=== PATIENT | female | born 1975 | race Caucasian/White ===

== ENCOUNTER → 2020-06-09 08:55 | Outpatient (BNVA) | payer OTHER, SELFPAY | PROVIDERS: PCP Internal Medicine; Referring Provider Internal Medicine; Visit Provider Student in an Organized Health Care Education/Training Program | DX: M70.62 Trochanteric bursitis, left hip (principal) | CPT/HCPCS: 99212 ==

== ENCOUNTER 2020-06-09 09:51 | Outpatient (REF) | payer OTHER, SELFPAY | END 2020-06-09 09:52 | disposition home or self-care (01) | LOC: HO.XRAY 09:51 | PROVIDERS: PCP Internal Medicine; Visit Provider Student in an Organized Health Care Education/Training Program | DX: M70.62 Trochanteric bursitis, left hip (principal) | CPT/HCPCS: 73502 ==

== ENCOUNTER → 2020-06-16 08:10 | Outpatient (BNVA) | payer OTHER, SELFPAY | PROVIDERS: PCP Internal Medicine; Visit Provider Advanced Practice Midwife | DX: Z30.41 Encounter for surveillance of contraceptive pills (principal) | CPT/HCPCS: 99212 ==

== ENCOUNTER 2020-06-25 09:35 | Outpatient (REF) | payer OTHER, SELFPAY ==
--- NOTE | 2020-06-25 09:38 | MM_ITS ---
EXAMINATION: MM SCREENING DIGITAL BREAST TOMOSYNTHESIS, BILATERAL CLINICAL INFORMATION: Screening. Asymptomatic. The lifetime risk of breast cancer based on the Tyrer-Cuzick Model is 8%. COMPARISON: Mammography: 03/17/2019, 03/04/2018, 02/05/2017 TECHNIQUE: Digital breast tomosynthesis is performed in both the craniocaudal and mediolateral oblique views along with computer-aided detection (CAD). Synthesized 2D images are generated from the tomosynthesis. FINDINGS: The breasts are heterogeneously dense, which may obscure small masses (ACR BI-RADS breast composition Category c). There are no significant masses, abnormal calcifications, or other abnormalities. No significant changes from prior studies. MM/MM tomosynthesis screening BI IMPRESSION: No mammographic evidence of malignancy. ASSESSMENT: BI-RADS 1: Negative RECOMMENDATION: Routine annual mammography screening. This patient's information was entered into a reminder system with a target due date for their next mammogram.
== END 2020-06-25 09:36 | disposition home or self-care (01) ==
LOC: HO.MAMMO 09:35
PROVIDERS: PCP Internal Medicine; Visit Provider Internal Medicine
DX: Z12.31 Encounter for screening mammogram for malignant neoplasm of breast (principal)
CPT/HCPCS: 77063; 77067

== ENCOUNTER 2020-08-13 10:17 | Outpatient (REF) | payer OTHER, SELFPAY | END 2020-08-13 10:18 | disposition home or self-care (01) | LOC: HO.LAB 10:17 | PROVIDERS: PCP Internal Medicine; Visit Provider Internal Medicine | DX: Z20.822 Contact with and (suspected) exposure to COVID-19 (principal) | CPT/HCPCS: 36415; C9803; U0003 ==

== ENCOUNTER 2020-09-15 11:18 | Outpatient (REF) | payer OTHER, SELFPAY ==
[2020-09-16 08:23] LABS: BV Int Neg Control Negative (Negative); BV Int Pos Control Positive (Positive)
== END 2020-09-15 11:19 | disposition home or self-care (01) ==
LOC: HO.LAB 11:18
PROVIDERS: PCP Internal Medicine; Visit Provider Internal Medicine
DX: Z12.4 Encounter for screening for malignant neoplasm of cervix (principal); Z11.3 Encounter for screening for infections with a predominantly sexual mode of transmission; Z20.822 Contact with and (suspected) exposure to COVID-19
CPT/HCPCS: 36415; 87480; 87510; 87660; 88142; C9803; U0003; U0005

== ENCOUNTER 2020-10-20 08:52 | Outpatient (REF) | payer OTHER, SELFPAY | END 2020-10-20 08:53 | disposition home or self-care (01) | LOC: HO.LAB 08:52 | PROVIDERS: Visit Provider Internal Medicine | DX: Z20.822 Contact with and (suspected) exposure to COVID-19 (principal) | CPT/HCPCS: 36415; C9803; U0003; U0005 ==

== ENCOUNTER 2020-12-12 08:29 | Outpatient (REF) | payer OTHER, SELFPAY ==
[2020-12-12 09:41] LABS: MANUAL DIFF FLAG NO
[2020-12-12 09:47] LABS: Basophils Percent Auto 0.4 % (0-2); Eosinophils Absolute Auto 0.2 X10*3/uL (0.0-0.4); Eosinophils Percent Auto 1.7 % (0-4); Hematocrit 40.4 % (37-47); Hemoglobin 13.5 g/dl (12.0-16.0); Imm Gran Abs Auto 0.05 X10*3/uL (0.00-0.03); Imm Gran Pct Auto 0.5 % (0.0-0.4); Lymphocytes Absolute Auto 1.6 X10*3/uL (1.2-4.9); Mean Corpuscular HGB Conc 33.4 g/dl (31.0-35.0); Mean Corpuscular Hemoglobin 30.5 pg (27.0-33.0); Mean Corpuscular Volume 91.4 fL (80-98); Mean Platelet Volume 10.7 fL (9.4-12.3); Monocytes Absolute Auto 0.7 X10*3/uL (0.1-1.2); Monocytes Percent Auto 7.4 % (2-11); Neutrophils Absolute Auto 6.9 X10*3/uL (2.0-8.3); Platelet Count 299 X10*3/uL (160-400); Red Blood Count 4.42 X10*6/uL (4.20-5.50); Red Cell Distribution Width 12.4 % (11.0-16.0); White Blood Count 9.4 X10*3/uL (4.8-10.8)
[2020-12-12 10:01] LABS: Estimated Average Glucose 103 mg/dL; Hemoglobin A1c % 5.2 %
[2020-12-12 10:13] LABS: Alanine Aminotransferase 22 U/L (0-31); Albumin Level 4.3 g/dL (3.5-5.0); Alkaline Phosphatase 72 U/L (39-117); Anion Gap 14 (12-20); Aspartate Amino Transferase 19 U/L (5-31); Bilirubin Total 0.3 mg/dL (0.0-1.0); Blood Urea Nitrogen 15 mg/dL (9-16); Calcium 8.9 mg/dL (8.4-10.2); Carbon Dioxide 23 mmol/L (22-29); Chloride 104 mmol/L (96-108); Cholesterol 186 mg/dL; Estimated Glomerular Filt Rate > 60; Glucose Random 97 mg/dL (60-115); HDL Cholesterol 49 mg/dL; LDL Cholesterol Calculated 119 mg/dl; Potassium 4.1 mmol/L (3.3-5.1); Sodium 137 mmol/L (135-145); Total Protein 7.1 g/dL (6.5-8.0); Triglycerides 90 mg/dL
[2020-12-12 10:27] LABS: Thyroid Stimulating Hormone 2.31 uIU/mL (0.32-4.0)
[2020-12-12 11:40] LABS: CT PCR NOT DETECTED (Not Detect.); NG PCR NOT DETECTED (Not Detect.)
== END 2020-12-12 08:30 | disposition home or self-care (01) ==
LOC: HO.LAB 08:29
PROVIDERS: PCP Internal Medicine; Visit Provider Internal Medicine
DX: E78.00 Pure hypercholesterolemia, unspecified (principal); Z12.4 Encounter for screening for malignant neoplasm of cervix
CPT/HCPCS: 80053; 80061; 83036; 84439; 84443; 85025; 87491; 87591

== ENCOUNTER → 2021-08-03 08:00 | Outpatient (BNVA) | payer OTHER, SELFPAY | PROVIDERS: PCP Internal Medicine; Visit Provider Nurse Practitioner Family | DX: M70.62 Trochanteric bursitis, left hip (principal) | CPT/HCPCS: 99212 ==

== ENCOUNTER 2021-08-03 11:21 | Outpatient (REF) | payer OTHER, SELFPAY ==
[2021-08-03 12:21] LABS: COVID-19 Test Positive (Negative); IDNOW Serial# 55D5AD1C
== END 2021-08-03 11:22 | disposition home or self-care (01) ==
LOC: HO.LAB 11:21
PROVIDERS: Visit Provider Internal Medicine
DX: Z20.822 Contact with and (suspected) exposure to COVID-19 (principal)
CPT/HCPCS: 87635; C9803

== ENCOUNTER 2021-08-11 07:55 | Outpatient (REF) | payer OTHER, SELFPAY ==
--- NOTE | ~2021-08-11 | MM_ITS ---
EXAMINATION: MM SCREENING DIGITAL BREAST TOMOSYNTHESIS, BILATERAL CLINICAL INFORMATION: Screening. Asymptomatic. The lifetime risk of breast cancer based on the Tyrer-Cuzick Model is 8%. COMPARISON: Mammography: 06/25/2020, 03/25/2019, 03/04/2018 TECHNIQUE: Digital breast tomosynthesis is performed in both the craniocaudal and mediolateral oblique views along with computer-aided detection (CAD). Synthesized 2D images are generated from the tomosynthesis. FINDINGS: The breasts are heterogeneously dense, which may obscure small masses (ACR BI-RADS breast composition Category c). There are no significant masses, abnormal calcifications, or other abnormalities. Parenchymal pattern is similar to prior studies. Oval asymmetry on tomography mid upper left breast on MLO view is stable. There is no developing density. No significant changes. MM/MM tomosynthesis screening BI IMPRESSION: No mammographic evidence of malignancy. ASSESSMENT: BI-RADS 2: Benign RECOMMENDATION: Routine annual mammography screening. This patient's information was entered into a reminder system with a target due date for their next mammogram.
== END 2021-08-11 07:56 | disposition home or self-care (01) ==
LOC: HO.MAMMO 07:55
PROVIDERS: Visit Provider Internal Medicine
DX: Z12.31 Encounter for screening mammogram for malignant neoplasm of breast (principal)
CPT/HCPCS: 77063; 77067

== ENCOUNTER 2021-10-30 11:00 | Outpatient (RCR) | payer OTHER, SELFPAY ==
--- NOTE | 2021-10-13 16:16 | MHC.PT.EP ---
[facility] [place] Office [place] Office [place] Office [address] Foster [address] [phone] F: [phone] F: [phone] F: [phone] F: [phone] Physical Therapy Plan of Care Date of Evaluation: Date of Surgery: N/A Diagnosis: trochanteric bursitis, L hip low back pain Assessment: pt's signs and symptoms consistent w/ lumbar radiculopathy. pt does have some signs and symptoms consistent w/ pelvic floor dysfunction. Discussed w/ pt if intervention directed toward her low back are not beneficial then she may benefit from pelvic floor physical therapy referral. Will monitor and refer out as appropriate. pt presents to physical therapy with pain, decreased range of motion, decreased strength, impaired functional mobility, impaired postural awareness, and gait deviations. pt is a good candidate for skilled PT due to age, potential remediation of impairments, typical disease/condition progression and prognosis, comorbidities, and motivation. pt would benefit from tailored strengthening and stretching exercise program, functional training, gait training, postural re-training, neuromuscular re-education, modalities as needed for pain, equipment safety demonstration. Frequency and Duration: The patient will be seen 2x/wk for 6 wks Short Term Goals: pt will be I w/ HEP to promote self-management of condition. pt will demo proper sitting posture w/ lumbar roll to promote neutral spine w/ seated ADLs. Under Sheriff Goals: pt will report a statistically significant improvement in self-reported outcome measure, J Luis, to promote return to PLOF. pt will demo proper lifting mechanics w/ 15# object from floor to chest height x3 reps to promote return to pain-free lifting. Treatment Plan: Modalities to reduce pain, spasms and effusion. Manual therapy to restore motion and function. Therapeutic exercise to improve strength and flexibility. Neuromuscular re-education for posture and balance. Therapeutic activities to return to functional activities of daily living. Electronically signed by: Amie Mancilla PT, DPT Please sign and return to therapist. Thank you for your referral.
--- NOTE | 2021-11-07 14:29 | MHC.PT.DC ---
[facility] [place] Office [place] Office [place] Office [address] [phone] F: [phone] F: [phone] F: [phone] F: [phone] Physical Therapy Discharge Report Diagnosis: trochanteric bursitis, L hip low back pain Date of Surgery: N/A Date of Evaluation: 10/13/21 Date of Discharge: 11/07/21 Treatments to Date: 2 Cancellations to Date: 1 No Shows to Date: 4 Discharge Status: Visit Non-compliance Discharge Summary: Per last PT note: Alana arrived to PT after missing 2 weeks due to menstrual pain and discomfort. She stated that she has been performing CARLO at home and this has helped her pain her pain. She presented today with pain localized to low back. She was started with REILs. She had mild relief in symptoms but her pain was still present. She was started with lumbar stabs. Needed extensive cues in the start to avoid holding her breath with TrA. She however demonstrate improved control with subsequent reps. Alana was distributed updated HEP. Progress per tolerance. No adverse response noted to any exercise. She has no showed a total of four appointments. She is being discharged from this physical therapy plan of care due to visit non-compliance. Electronically signed by: Amie Mancilla PT, DPT Please sign and return to therapist. Thank you for your referral.
== END 2021-11-07 14:30 | disposition home or self-care (01) ==
LOC: HO.PT 11:00
PROVIDERS: PCP Internal Medicine; Visit Provider Nurse Practitioner Family
DX: M70.62 Trochanteric bursitis, left hip (principal); M54.50 Low back pain, unspecified
CPT/HCPCS: 97110; 97112; 97162

== ENCOUNTER → 2021-11-28 13:20 | Outpatient (BNVA) | payer OTHER, SELFPAY | PROVIDERS: PCP Internal Medicine; Referring Provider Internal Medicine; Visit Provider Nurse Practitioner | DX: Z12.11 Encounter for screening for malignant neoplasm of colon (principal) | CPT/HCPCS: 99202 ==

== ENCOUNTER → 2021-11-30 11:02 | Outpatient (BNVA) | payer OTHER, SELFPAY | PROVIDERS: PCP Internal Medicine; Visit Provider Nurse Practitioner Family | DX: M77.01 Medial epicondylitis, right elbow (principal) | CPT/HCPCS: 99212 ==

== ENCOUNTER 2021-12-27 07:35 | Outpatient (REF) | payer OTHER, SELFPAY ==
[2021-12-27 08:20] LABS: MANUAL DIFF FLAG NO
[2021-12-27 09:37] LABS: Basophils Percent Auto 0.6 % (0-2); Eosinophils Absolute Auto 0.1 X10*3/uL (0.0-0.4); Eosinophils Percent Auto 1.9 % (0-4); Hematocrit 39.2 % (37.0-47.0); Hemoglobin 13.2 g/dl (12.0-16.0); Imm Gran Abs Auto 0.02 X10*3/uL (0.00-0.03); Imm Gran Pct Auto 0.3 % (0.0-0.4); Lymphocytes Absolute Auto 1.5 X10*3/uL (1.2-4.9); Lymphocytes Percent Auto 20.9 % (20-40); Mean Corpuscular HGB Conc 33.7 g/dl (31.0-35.0); Mean Corpuscular Volume 89.1 fL (80.0-98.0); Mean Platelet Volume 10.2 fL (9.4-12.3); Monocytes Absolute Auto 0.6 X10*3/uL (0.1-1.2); Monocytes Percent Auto 7.8 % (2-11); Neutrophils Percent Auto 68.5 % (45-73); Platelet Count 304 X10*3/uL (160-400); Red Cell Distribution Width 11.9 % (11.0-16.0); White Blood Count 7.3 X10*3/uL (4.8-10.8)
[2021-12-27 10:21] LABS: Estimated Average Glucose 103 mg/dL; Hemoglobin A1c % 5.2 %
[2021-12-27 10:30] LABS: Alanine Aminotransferase 15 U/L (0-31); Albumin Level 4.2 g/dL (3.5-5.0); Alkaline Phosphatase 58 U/L (39-117); Anion Gap 11 (12-20); Aspartate Amino Transferase 17 U/L (5-31); Bilirubin Total 0.4 mg/dL (0.0-1.0); Blood Urea Nitrogen 10 mg/dL (9-16); Calcium 9.5 mg/dL (8.4-10.2); Carbon Dioxide 26 mmol/L (22-29); Chloride 102 mmol/L (96-108); Cholesterol 212 mg/dL; Estimated Glomerular Filt Rate > 60; Glucose Random 96 mg/dL (60-115); HDL Cholesterol 53 mg/dL; LDL Cholesterol Calculated 146 mg/dl; Potassium 4.1 mmol/L (3.3-5.1); Sodium 135 mmol/L (135-145); Triglycerides 69 mg/dL
[2021-12-27 10:37] LABS: Free T4 (Free Thyroxine) 0.92 ng/dL (0.71-1.85)
[2021-12-27 11:11] LABS: Folate 9.5 ng/mL (> or = 4.0); Vitamin B12 383 pg/mL (200-900)
== END 2021-12-27 07:36 | disposition home or self-care (01) ==
LOC: HO.LAB 07:35
PROVIDERS: Absent Provider Internal Medicine; PCP Internal Medicine; Visit Provider Nurse Practitioner
DX: E78.00 Pure hypercholesterolemia, unspecified (principal)
CPT/HCPCS: 36415; 80053; 80061; 82306; 82607; 82746; 83036; 84439; 84443; 85025

== ENCOUNTER 2022-08-29 08:23 | Outpatient (REF) | payer OTHER, SELFPAY ==
--- NOTE | ~2022-08-29 | MM_ITS ---
EXAMINATION: MM SCREENING DIGITAL BREAST TOMOSYNTHESIS, BILATERAL CLINICAL INFORMATION: Screening. Asymptomatic. The lifetime risk of breast cancer based on the Tyrer-Cuzick Model is 9%. COMPARISON: Mammography: 08/11/2021, 06/25/2020, 03/25/2019 TECHNIQUE: Digital breast tomosynthesis is performed in both the craniocaudal and mediolateral oblique views along with computer-aided detection (CAD). Synthesized 2D images are generated from the tomosynthesis. Additional left MLO view is provided. FINDINGS: The breasts are heterogeneously dense, which may obscure small masses (ACR BI-RADS breast composition Category c). No architectural abnormality or developing density or significant change from prior studies. There are scattered parenchymal asymmetries similar to prior studies. There are no significant masses, abnormal calcifications, or other abnormalities. The skin contours are smooth. MM/MM tomosynthesis screening BI IMPRESSION: No mammographic evidence of malignancy. ASSESSMENT: BI-RADS 2: Benign RECOMMENDATION: Routine annual mammography screening. This patient's information was entered into a reminder system with a target due date for their next mammogram.
== END 2022-08-29 08:24 | disposition home or self-care (01) ==
LOC: HO.MAMMO 08:23
PROVIDERS: PCP Internal Medicine; Visit Provider Internal Medicine
DX: Z12.31 Encounter for screening mammogram for malignant neoplasm of breast (principal)
CPT/HCPCS: 77063; 77067

== ENCOUNTER → 2022-10-29 11:24 | Outpatient (BNVA) | payer OTHER, SELFPAY | PROVIDERS: PCP Internal Medicine; Visit Provider Nurse Practitioner Family | DX: M77.01 Medial epicondylitis, right elbow (principal); Z79.899 Other long term (current) drug therapy | CPT/HCPCS: 99212 ==

== ENCOUNTER 2022-11-14 08:03 | Outpatient (REF) | payer OTHER, SELFPAY ==
[2022-11-14 09:03] LABS: Amphetamine Screen Urine Not Detected (Not Detect); Barbiturates, Urine Not Detected (Not Detect); Benzodiazepines Screen Urine Not Detected (Not Detect); Cannabinoid Screen Urine Not Detected (Not Detect); Cocaine Screen Urine Not Detected (Not Detect); Fentanyl, urine Not Detected (Not Detect); Opiate Screen Urine Not Detected (Not Detect); Phencyclidine Screen Urine Not Detected (Not Detect)
== END 2022-11-14 08:04 | disposition home or self-care (01) ==
LOC: HO.LAB 08:03
PROVIDERS: Nurse Practitioner Family; PCP Internal Medicine; Visit Provider Nurse Practitioner
DX: Z79.899 Other long term (current) drug therapy (principal)
CPT/HCPCS: 80307; 80373

== ENCOUNTER 2023-04-03 08:24 | Outpatient (AMB) | payer OTHER, SELFPAY ==
[2023-04-03 08:31] VITALS: BP 124/76; PULSE 78; O2SAT 98; BMI 29.4
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
== END 2023-04-03 09:04 | disposition home or self-care (01) ==
PROVIDERS: PCP Internal Medicine; Visit Provider Internal Medicine
DX: K21.9 Gastro-esophageal reflux disease without esophagitis (principal); J45.20 Mild intermittent asthma, uncomplicated; E78.00 Pure hypercholesterolemia, unspecified; R73.02 Impaired glucose tolerance (oral); E66.3 Overweight; F41.1 Generalized anxiety disorder; K62.5 Hemorrhage of anus and rectum
CPT/HCPCS: 99214

== ENCOUNTER 2023-04-03 09:09 | Outpatient (REF) | payer OTHER, SELFPAY ==
[2023-04-03 09:33] LABS: MANUAL DIFF FLAG NO
[2023-04-03 09:34] LABS: Basophils Percent Auto 0.6 % (0-2); Eosinophils Absolute Auto 0.2 X10*3/uL (0.0-0.4); Eosinophils Percent Auto 2.4 % (0-4); Hematocrit 40.5 % (37.0-47.0); Hemoglobin 13.4 g/dl (12.0-16.0); Imm Gran Abs Auto 0.02 X10*3/uL (0.00-0.03); Imm Gran Pct Auto 0.3 % (0.0-0.4); Lymphocytes Absolute Auto 1.3 X10*3/uL (1.2-4.9); Lymphocytes Percent Auto 19.4 % (20-40); Mean Corpuscular HGB Conc 33.1 g/dl (31.0-35.0); Mean Corpuscular Hemoglobin 30.1 pg (27.0-33.0); Mean Platelet Volume 9.7 fL (9.4-12.3); Monocytes Absolute Auto 0.5 X10*3/uL (0.1-1.2); Neutrophils Absolute Auto 4.5 x10*3/uL (2.0-8.3); Neutrophils Percent Auto 69.3 % (45-73); Platelet Count 285 X10*3/uL (160-400); Red Blood Count 4.45 X10*6/uL (4.20-5.50); Red Cell Distribution Width 12.4 % (11.0-16.0); White Blood Count 6.5 X10*3/uL (4.8-10.8)
[2023-04-03 09:47] LABS: Estimated Average Glucose 100 mg/dL; Hemoglobin A1c % 5.1 % (<6.0)
[2023-04-03 10:27] LABS: Alanine Aminotransferase 14 U/L (0-31); Albumin Level 4.4 g/dL (3.5-5.0); Alkaline Phosphatase 61 U/L (39-117); Anion Gap 11 (12-20); Aspartate Amino Transferase 20 U/L (5-31); Blood Urea Nitrogen 12 mg/dL (9-16); Calcium 9.2 mg/dL (8.4-10.2); Carbon Dioxide 27 mmol/L (22-29); Chloride 104 mmol/L (96-108); Cholesterol 209 mg/dL (<200); Estimated Glomerular Filt Rate > 60; Glucose Random 102 mg/dL (60-115); HDL Cholesterol 56 mg/dL (>40); LDL Cholesterol Calculated 140 mg/dL (<100); Potassium 3.8 mmol/L (3.3-5.1); Sodium 138 mmol/L (135-145); Total Protein 7.4 g/dL (6.5-8.0); Triglycerides 68 mg/dL (<150)
[2023-04-03 10:49] LABS: Free T4 (Free Thyroxine) 0.92 ng/dL (0.71-1.85); Thyroid Stimulating Hormone 1.94 uIU/mL (0.32-4.0); Vitamin D 25-OH Total 29.5 ng/mL (>30)
[2023-04-03 10:54] LABS: Folate 9.3 ng/mL (> or = 4.0); Vitamin B12 556 pg/mL (200-900)
== END 2023-04-03 09:10 | disposition home or self-care (01) ==
LOC: HO.LAB 09:09
PROVIDERS: PCP Internal Medicine; Visit Provider Internal Medicine
DX: R73.02 Impaired glucose tolerance (oral) (principal); E78.00 Pure hypercholesterolemia, unspecified
CPT/HCPCS: 36415; 80053; 80061; 82306; 82607; 82746; 83036; 84439; 84443; 85025

== ENCOUNTER 2023-07-02 09:13 | Outpatient (AMB) | payer OTHER, SELFPAY ==
[2023-07-02 09:15] VITALS: BP 116/82; PULSE 74; O2SAT 97; BMI 30.2
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
== END 2023-07-02 09:39 | disposition home or self-care (01) ==
PROVIDERS: PCP Internal Medicine; Visit Provider Student in an Organized Health Care Education/Training Program
DX: M47.812 Spondylosis without myelopathy or radiculopathy, cervical region (principal); R76.8 Other specified abnormal immunological findings in serum
CPT/HCPCS: 99214

== ENCOUNTER → 2023-07-02 09:13 | Outpatient (BNVA) | payer OTHER, SELFPAY | PROVIDERS: PCP Internal Medicine; Visit Provider Student in an Organized Health Care Education/Training Program | DX: M47.812 Spondylosis without myelopathy or radiculopathy, cervical region (principal); R76.8 Other specified abnormal immunological findings in serum | CPT/HCPCS: 99212 ==

== ENCOUNTER 2023-07-16 09:11 | Outpatient (AMB) | payer OTHER, SELFPAY ==
--- NOTE | 2023-07-16 09:12 | MHC.PC.OV ---
Vital Signs 07/16/23 09:13 Height 5 ft 2 in Weight 166 lb BMI 30.4 BP 122/80 Blood Pressure Location Lt brachial Position Sitting Pulse 79 Pulse Source Pulse Oximeter Pulse Oximetry (%) 98 Oxygen Delivery Method Room Air Intake Visit Reasons: rectal bleeding [place] Required: No Accompanied by: Self / Same As Patient Allergies No Known Allergies [No Known Allergies*] Allergy (Verified 07/16/23 09:13) Medication List - Last Reconciled 07/16/23 by Miracle Garrison MD albuterol sulfate 90 mcg/actuation (Ventolin HFA) 2 puffs PO Q4-6H PRN betamethasone valerate 0.1% 1 appl topical BID PRN cetirizine (Zyrtec) 10 mg PO DAILY cholecalciferol (vitamin D3) 25 mcg PO DAILY clonidine HCl 0.2 mg PO BEDTIME PRN diphenhydramine HCl 25 - 50 mg (1 - 2 x 25 mg) PO BEDTIME PRN docusate sodium 200 mg (2 x 100 mg) PO DAILY PRN 90 days fluoxetine (Prozac) 40 mg PO DAILY fluticasone propionate 50 mcg/actuation 2 sprays intranasal DAILY gabapentin 100 mg PO BEDTIME hydrocortisone 2.5% (Proctosol HC) 1 appl RI BID-QID PRN hydrocortisone-pramoxine 2.5-1 % (Analpram-HC) 1 appl RI QID PRN lorazepam 0.5 mg PO DAILY PRN mirtazapine (Remeron) 15 mg PO BEDTIME montelukast (Singulair) 10 mg PO DAILY 90 days omeprazole 20 mg PO DAILY oxybutynin chloride 5 mg PO BID 90 days peg 3350-electrolytes 236-22.74-6.74 -5.86 gram (Golytely) 240 mL PO Q10M 1 day polyethylene glycol 3350 (Miralax) 17 grams PO DAILY 90 days simethicone (Gas Relief (simethicone)) 80 mg PO BID PRN sumatriptan succinate 50 mg PO .QD PRN tramadol 50 mg PO BID PRN Tobacco use date assessed: 10/01/22 Dental Screening Dental Screen Date: 07/16/23 Did you have a dental visit in the last 12 months?: No Did you have a dental problem in the last 6 months where you did not have access to dental care?: No Was dental information given to patient?: Patient has dentist HPI rectal bleeding HPI Details 47-year-old obese female with GERD hypercholesterolemia impaired glucose tolerance generalized anxiety disorder asthma last seen in March 2023 having some rectal bleeding patient is here for follow-up. Patient's colonoscopy is due July 2023 patient follows up with Rheumatology also complains of back pain neck and lower back diagnosis of for cervical spondylosis tramadol p.r.n. no evidence of autoimmune problem. still having constipation [facility] Medical History (Updated 07/16/23 @ 09:53 by Miracle Garrison MD) Obesity (BMI 30.0-34.9) Medial epicondylitis, right elbow Dermatitis Bacterial vaginosis Vaginal candidiasis Cervical cancer screening Constipation PTSD (post-traumatic stress disorder) Leukopenia Hypercholesterolemia Urinary incontinence Migraine GERD (gastroesophageal reflux disease) Allergic rhinitis Anxiety and depression Asthma Ulnar neuropathy Vitamin D deficiency Trochanteric bursitis, left hip Surgical History History of tonsillectomy History of tubal ligation Family History Father Hypertension Liver cancer Mother Lupus Paternal Aunt Myocardial infarction Substance abuse Daughter No problems noted. Daughter No problems noted. Daughter No problems noted. Maternal Grandfather Renal cancer Social History Housing: Apartment Alcohol intake: never Patient Tobacco Use Status: Former Tobacco user Tobacco use type: Cigarette Years Smoked: quit21 years old e-Cigarette/Vaping Use: Never Used Second Hand Smoke Exposure: No service: No Current occupational status: disabled Gender identity: Female Cognitive needs: No Hearing needs: No Vision needs: No Female Reproductive History Menstrual Age of Menarche: 9 Questionnaire Thrive Questionnaire Date Thrive assessed: 10/01/22 BENTLEY-7 AMB Questionnaire BENTLEY-7 Date BENTLEY - 7 assessed: 10/01/22 Source: Developed by Drs. Med Brown, Bessy Ferraro, Hoang Bailey and colleagues, with an educational marleni from [employer]. Physical exam (Primary Care) Vital Signs: Last Vital Signs Pulse 79 07/16/23 09:13 BP 122/80 07/16/23 09:13 Pulse Ox 98 07/16/23 09:13 Oxygen Delivery Method Room Air 07/16/23 09:13 BMI result Body Mass Index 30.4 Tobacco/Smoking Status: Tobacco use Status Tobacco use date assessed 10/01/22 07/16/23 09:17 Patient Tobacco Use Status Former Tobacco user 07/16/23 09:17 Tobacco use type Cigarette 07/16/23 09:17 e-Cigarette/Vaping Use Never Used 07/16/23 09:17 Thrive Assessment: Date of Thrive Assessment Date Thrive assessed 10/01/22 07/16/23 09:17 Const General: alert; No acute distress Eyes Conjunctivae: conjunctivae normal Resp Auscultation: clear to auscultation bilaterally Cardio Rate: regular rate Rhythm: regular rhythm GI Inspection: Yes normal to inspection Extrem General: Yes normal to inspection and No edema Assessment and Plan Assessment & Plan (1) Obesity (BMI 30.0-34.9): Code(s): E66.9 - Obesity, unspecified Plan: Diet and exercise (2) Hypercholesterolemia: Code(s): E78.00 - Pure hypercholesterolemia, unspecified Plan: Avoid fried foods, chicken skin, eggs, butter margarine, pastries and meat. Be it pork or beef they have a lot of cholesterol LDL goal of less than 130 and triglyceride of less than 150 (3) GERD (gastroesophageal reflux disease): Code(s): K21.9 - Gastro-esophageal reflux disease without esophagitis Plan: Avoid the foods that causes that usually spicy foods, tomato products, juices, coffee, soda and foods that your sensitive to. After eating do not lie down, allow 3-4 hours before in lie down. And keep the head of bed above 30 degrees to avoid the acid from going up. (4) Impaired glucose tolerance: Code(s): R73.02 - Impaired glucose tolerance (oral) Plan: Decrease the amount of carbohydrate intake, pasta, bread, rice and potatoes are all sugar and that is aside from all the sweet stuff, remember that fruits are good but they are Sweet also. (5) Generalized anxiety disorder: Comment: [place] Code(s): F41.1 - Generalized anxiety disorder Plan: Continue with counseling and therapy (6) Rectal bleeding: Code(s): K62.5 - Hemorrhage of anus and rectum Plan: Patient's colonoscopy is due in July 2023 (7) Asthma: Code(s): J45.909 - Unspecified asthma, uncomplicated Qualifiers: Asthma severity: mild Asthma persistence: intermittent Asthma complication type: uncomplicated Qualified Code(s): J45.20 - Mild intermittent asthma, uncomplicated Plan: Continue with inhaler as needed Orders: Orders Complete Blood Count Auto Diff Today E78.00 - Pure hypercholesterolemia, unspecified Comprehensive Met. Panel Today E78.00 - Pure hypercholesterolemia, unspecified Vitamin B12 and Folate Today E78.00 - Pure hypercholesterolemia, unspecified Lipid Panel Today E78.00 - Pure hypercholesterolemia, unspecified Free T4 (Free Thyroxine) Today E78.00 - Pure hypercholesterolemia, unspecified Thyroid Stimulating Hormone Today E78.00 - Pure hypercholesterolemia, unspecified Hemoglobin A1c Today E78.00 - Pure hypercholesterolemia, unspecified Vitamin D 25-OH Total Today E78.00 - Pure hypercholesterolemia, unspecified Medications: Refilled sumatriptan succinate 50 mg PO .QD PRN 10 tabs 5RF migraine headache G43.909 - Migraine, unspecified, not intractable, without status migrainosus Coding Level of Care Code Est Pt Level 4 (90902) Diagnoses Obesity (BMI 30.0-34.9) E66.9 Hypercholesterolemia E78.00 GERD (gastroesophageal reflux disease) K21.9 Impaired glucose tolerance R73.02 Generalized anxiety disorder F41.1 Rectal bleeding K62.5 Mild intermittent asthma without complication J45.20 Asthma severity: mild Asthma persistence: intermittent Asthma complication type: uncomplicated
[2023-07-16 09:13] VITALS: BP 122/80; PULSE 79; O2SAT 98; BMI 30.4
== END 2023-07-16 10:04 | disposition home or self-care (01) ==
PROVIDERS: PCP Internal Medicine; Visit Provider Internal Medicine
DX: E78.00 Pure hypercholesterolemia, unspecified (principal); K21.9 Gastro-esophageal reflux disease without esophagitis; E66.9 Obesity, unspecified; Z68.30 Body mass index [BMI] 30.0-30.9, adult; R73.02 Impaired glucose tolerance (oral); F41.1 Generalized anxiety disorder; K62.5 Hemorrhage of anus and rectum; J45.20 Mild intermittent asthma, uncomplicated
CPT/HCPCS: 99214

== ENCOUNTER 2023-10-22 07:55 | Outpatient (REF) | payer OTHER, SELFPAY | END 2023-10-22 07:56 | disposition home or self-care (01) | LOC: HO.MAMMO 07:55 | PROVIDERS: PCP Internal Medicine; Visit Provider Internal Medicine | DX: Z12.31 Encounter for screening mammogram for malignant neoplasm of breast (principal) | CPT/HCPCS: 77063; 77067 ==

== ENCOUNTER → 2023-10-22 08:00 | Outpatient (BNV) | payer OTHER, SELFPAY | PROVIDERS: PCP Internal Medicine; Visit Provider Radiology Diagnostic Radiology | DX: Z12.31 Encounter for screening mammogram for malignant neoplasm of breast (principal) | CPT/HCPCS: 77063; 77067 ==

== ENCOUNTER 2024-01-01 09:07 | Outpatient (AMB) | payer OTHER, SELFPAY ==
[2024-01-01 09:08] VITALS: BP 114/72; PULSE 85; O2SAT 97; BMI 31.0
--- NOTE | 2024-01-01 09:08 | A.OFFVIS_ITS ---
Vital Signs 01/01/24 09:08 Height 5 ft 2 in Weight 169 lb 5.04 oz BMI 31.0 BP 114/72 Blood Pressure Location Rt brachial Position Sitting Pulse 85 Pulse Source Pulse Oximeter Pulse Oximetry (%) 97 Oxygen Delivery Method Room Air Intake Visit Reasons: FMS [employer] Supervisor Required: No Accompanied by: Self / Same As Patient Allergies No Known Allergies [No Known Allergies*] Allergy (Verified 01/01/24 09:15) Medication List - Last Reconciled 01/01/24 by Bryan Vázquez MD albuterol sulfate 90 mcg/actuation (Ventolin HFA) 2 puffs PO Q4-6H PRN betamethasone valerate 0.1% 1 appl topical BID PRN cetirizine (Zyrtec) 10 mg PO DAILY cholecalciferol (vitamin D3) 25 mcg PO DAILY clonidine HCl 0.2 mg PO BEDTIME PRN diphenhydramine HCl 25 - 50 mg (1 - 2 x 25 mg) PO BEDTIME PRN docusate sodium 200 mg (2 x 100 mg) PO DAILY PRN 90 days fluoxetine (Prozac) 40 mg PO DAILY fluticasone propionate 50 mcg/actuation 2 sprays intranasal DAILY gabapentin 100 mg PO BEDTIME hydrocortisone 2.5% (Proctosol HC) 1 appl [place] BID-QID PRN hydrocortisone-pramoxine 2.5-1 % (Analpram-HC) 1 appl WI QID PRN lorazepam 0.5 mg PO DAILY PRN mirtazapine (Remeron) 15 mg PO BEDTIME montelukast (Singulair) 10 mg PO DAILY 90 days omeprazole 20 mg PO DAILY oxybutynin chloride 5 mg PO BID 90 days peg 3350-electrolytes 236-22.74-6.74 -5.86 gram (Golytely) 240 mL PO Q10M 1 day peg 3350-electrolytes 236-22.74-6.74 -5.86 gram 240 mL PO Q10M polyethylene glycol 3350 (Miralax) 17 grams PO DAILY 90 days simethicone (Gas Relief (simethicone)) 80 mg PO BID PRN sumatriptan succinate 50 mg PO .QD PRN tramadol 50 mg PO BID PRN HPI Comments Details: 47yoF presents for follow-up of chronic neck and low back pain. She was last seen 06/2023 She states that she feels about the same overall. Pain is manageable. Takes tramadol twice a day 3-4 days a week. [facility] Medical History Obesity (BMI 30.0-34.9) Medial epicondylitis, right elbow Dermatitis Bacterial vaginosis Vaginal candidiasis Cervical cancer screening Constipation PTSD (post-traumatic stress disorder) Leukopenia Hypercholesterolemia Urinary incontinence Migraine GERD (gastroesophageal reflux disease) Allergic rhinitis Anxiety and depression Asthma Ulnar neuropathy Vitamin D deficiency Trochanteric bursitis, left hip Surgical History (Reviewed 01/01/24 @ 09: by Bryan Vázquez MD) History of tonsillectomy History of tubal ligation Family History (Reviewed 01/01/24 @ 09: by Bryan Vázquez MD) Father Hypertension Liver cancer Mother Lupus Paternal Aunt Myocardial infarction Substance abuse Daughter No problems noted. Daughter No problems noted. Daughter No problems noted. Maternal Grandfather Renal cancer Social History Housing: Apartment Alcohol intake: never Patient Tobacco Use Status: Former Tobacco user Tobacco use type: Cigarette Years Smoked: quit21 years old e-Cigarette/Vaping Use: Never Used Second Hand Smoke Exposure: No service: No Current occupational status: disabled Gender identity: Female Cognitive needs: No Hearing needs: No Vision needs: No Female Reproductive History Menstrual Age of Menarche: 9 Review of Systems ENT Reports neck pain Musc Reports back pain, Reports arthralgias and Reports neck pain Physical Exam Vital Signs: Last Vital Signs Pulse 85 01/01/24 09:08 BP 114/72 01/01/24 09:08 Pulse Ox 97 01/01/24 09:08 Oxygen Delivery Method Room Air 01/01/24 09:08 BMI result Body Mass Index 31.0 Const General: cooperative, healthy appearing and comfortable Nutritional Appearance: overweight Orientation/consciousness: patient oriented x3 Limitations: no limitations HEENT Head: Yes normocephalic and Yes atraumatic Resp Effort & Inspection: normal respiratory effort and able to speak in complete sentences Auscultation: clear to auscultation bilaterally Cardio Rate: regular rate Rhythm: regular rhythm GI Inspection: No distended Palpation (GI): Soft to palpation and nontender Skin General skin exam: no rashes or lesions noted Neuro General: patient oriented x3 Extrem Other: No active synovitis Normal nailfold capillaroscopy Results Reviewed Results Reviewed: Laboratory Tests 0 Previous serology with [facility] 08/03/2015 ASPEN positive 1:160 Sjogren's antibodies SSA, SSB negative, CAL negative, thyroid peroxidase normal, smooth muscle antibodies normal, scleroderma antibodies normal, mitochondrial antibodies negative, double-stranded DNA normal, sed rate 3, CRP <0.30, CBC stable.?? X-ray cervical spine 6 views, two views of the thoracic spine, and four views of the lumbar spine. [facility] 08/03/2015 Impression: Mild cervical spondylosis, greatest at the C4-C5 and C5-C6 levels. There is a kyphosis centered at C4-C5. Non diagnostic assessment of the mid to lower cervical foramina secondary to the angle of these films. There is transitional anatomy with partial sacralization of L5. Otherwise unremarkable radiographs of the thoracic lumbar spine. [facility] MRI cervical spine without contrast 08/03/2015 Impression: This study demonstrates spondylosis at C4-C5, C5-C6 and C6-C7. There is moderate right foraminal narrowing at C5-C6 and severe left foraminal narrowing at C6-C7. There is a posterior disc osteophyte complex at C4-C5 with mild distortion of the spinal cord and thecal sac on the left. Assessment & Plan Assessment & Plan (1) Cervical spondylosis: Code(s): M47.812 - Spondylosis without myelopathy or radiculopathy, cervical region Category: Medical Plan: Patient has been on tramadol chronically. She takes tramadol 50 mg Twice daily 3-4 days a week. Effective for her back and neck pain. 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 I do not see any signs of an autoimmune rheumatic disease upon evaluation today Plan I spent 20 minutes reviewing patient's chart, evaluating patient, counseling patient and documenting in the chart Coding Level of Care Code Est Pt Level 3 (51552) Diagnoses Cervical spondylosis M47.812 ASPEN positive R76.8
== END 2024-01-01 09:26 | disposition home or self-care (01) ==
PROVIDERS: PCP Internal Medicine; Visit Provider Student in an Organized Health Care Education/Training Program
DX: M47.812 Spondylosis without myelopathy or radiculopathy, cervical region (principal); R76.8 Other specified abnormal immunological findings in serum
CPT/HCPCS: 99213

== ENCOUNTER → 2024-01-01 09:07 | Outpatient (BNVA) | payer OTHER, SELFPAY | PROVIDERS: PCP Internal Medicine; Visit Provider Student in an Organized Health Care Education/Training Program | DX: M47.812 Spondylosis without myelopathy or radiculopathy, cervical region (principal); R76.8 Other specified abnormal immunological findings in serum | CPT/HCPCS: 99212 ==

== ENCOUNTER 2024-04-30 12:25 | Outpatient (AMB) | payer OTHER, SELFPAY ==
--- NOTE | 2024-04-30 12:27 | A.OFFPC_ITS ---
Vital Signs 04/30/24 12:29 Height 5 ft 2 in Weight 165 lb BMI 30.2 BP 124/82 Blood Pressure Location Lt brachial Position Sitting Pulse 92 Pulse Source Pulse Oximeter Pulse Oximetry (%) 98 Intake Visit Reasons: PE Intake Note: Patient here for a physical exam In Home Tutor Required: No Accompanied by: Self / Same As Patient Allergies No Known Allergies [No Known Allergies*] Allergy (Verified 04/30/24 12:32) Medication List - Last Reconciled 04/30/24 by Miracle Garrison MD albuterol sulfate 90 mcg/actuation (Ventolin HFA) 2 puffs PO Q4-6H PRN betamethasone valerate 0.1% 1 appl topical BID PRN cetirizine (Zyrtec) 10 mg PO DAILY cholecalciferol (vitamin D3) 25 mcg PO DAILY clonidine HCl 0.2 mg PO BEDTIME PRN diphenhydramine HCl 25 - 50 mg (1 - 2 x 25 mg) PO BEDTIME PRN docusate sodium 200 mg (2 x 100 mg) PO DAILY PRN 90 days fluoxetine (Prozac) 40 mg PO DAILY fluticasone propionate 50 mcg/actuation 2 sprays intranasal DAILY gabapentin 100 mg PO BEDTIME lorazepam 0.5 mg PO DAILY PRN mirtazapine (Remeron) 15 mg PO BEDTIME montelukast (Singulair) 10 mg PO DAILY 90 days naloxone 4 mg/actuation 4 mg intranasal Q2M PRN oxybutynin chloride 5 mg PO BID 90 days polyethylene glycol 3350 (Miralax) 17 grams PO DAILY 90 days sumatriptan succinate 50 mg PO .QD PRN tramadol 50 mg PO BID PRN Tobacco use date assessed: 04/30/24 Dental Screening Dental Screen Date: 04/30/24 Did you have a dental visit in the last 12 months?: Yes Did you have a dental problem in the last 6 months where you did not have access to dental care?: No Was dental information given to patient?: Patient has dentist HPI PE HPI Details 48-year-old obese female with hyperchole sterolemia GERD impaired glucose tolerance generalized anxiety disorder and asthma last seen in 07/17/2023. Patient had some rectal bleeding was scheduled for colonoscopy. Patient's mammogram is up-to-date. Review of the notes has been seeing Rheumatology diagnosis of fibromyalgia having chronic neck and low back pain on tramadol diagnosis of cervical spondylosis negative serologies no autoimmune disease noted. due to wait asking for liposuction [facility] Medical History Obesity (BMI 30.0-34.9) Medial epicondylitis, right elbow Dermatitis Bacterial vaginosis Vaginal candidiasis Cervical cancer screening Constipation PTSD (post-traumatic stress disorder) Leukopenia Hypercholesterolemia Urinary incontinence Migraine GERD (gastroesophageal reflux disease) Allergic rhinitis Anxiety and depression Asthma Ulnar neuropathy Vitamin D deficiency Trochanteric bursitis, left hip Surgical History History of tonsillectomy History of tubal ligation Family History Father Hypertension Liver cancer Mother Lupus Paternal Aunt Myocardial infarction Substance abuse Daughter No problems noted. Daughter No problems noted. Daughter No problems noted. Maternal Grandfather Renal cancer Social History (Updated 04/30/24 @ 12:43 by Miracle Garrison MD) Housing: Apartment Alcohol intake: never Patient Tobacco Use Status: Former Tobacco user Tobacco use type: Cigarette Years Smoked: quit 21 years old e-Cigarette/Vaping Use: Never Used Second Hand Smoke Exposure: No service: No Current occupational status: disabled Gender identity: Female Cognitive needs: No Hearing needs: No Vision needs: No Female Reproductive History Menstrual Age of Menarche: 9 Questionnaire PHQ-9 Over the last 2 weeks, how often have you been bothered by any of the following problems? 1. Little interest or pleasure in doing things: not at all 2. Feeling down, depressed, or hopeless: not at all 3. Trouble falling or staying asleep, or sleeping too much: several days 4. Feeling tired or having little energy: not at all 5. Poor appetite or overeating: not at all 6. Feeling bad about yourself - or that you are a failure or have let yourself or your family down: not at all 7. Trouble concentrating on things, such as reading the newspaper or watching television: not at all 8. Moving or speaking so slowly that other people could have noticed. Or the opposite - being so fidgety or restless that you have been moving around a lot more than usual: not at all 9. Thoughts that you would be better off or of hurting yourself in some way: not at all Total score: 1 Source: Developed by Drs. Med Brown, Hoang Tucker and colleagues, with an educational marleni from [employer]. Thrive Questionnaire Date Thrive assessed: 04/30/24 I am a: Patient What is your living situation today?: I have a steady place to live Within the past 12 months, did the food you bought not last and you didn't have the money to get more?: Often true Within the past 12 months, did you worry whether your food would run out before you got money to buy more?: Often true Do you have trouble paying for medicines?: No Do you have trouble getting transportation to medical appointments?: No Do you have trouble paying your heating and electricity bill?: No Do you have trouble taking care of your child, family member or friend?: No Do you have trouble with day-to-day activities such as bathing, preparing meals, shopping, managing finances, etc.?: No Are you currently unemployed and looking for a job?: No Are you interested in more education?: No Please select the resources that you would like help with: Food Currently or been in a relationship where the following occur: Controlled Financially THRIVE Score: 3 AUDIT C Alcohol Use Questionnaire (AUDIT-C) 1. How often do you have a drink containing alcohol?: Never Total Score: 0 BENTLEY-7 AMB Questionnaire BENTLEY-7 Date BENTLEY - 7 assessed: 04/30/24 Feeling nervous, anxious, or on edge: 1 = Several days Not being able to stop or control worryin = Several days Worrying too much about different things: 1 = Several days Trouble relaxin = Several days Being so restless that it is hard to sit still: 1 = Several days Becoming easily annoyed or irritable: 1 = Several days Feeling afraid as if something awful might happen: 1 = Several days Total BENTLEY-7 score (0-4 normal; 5-9 mild; 10-14 moderate; 15-21 severe): 7 Source: Developed by Bessy Cook Kurt Kroenke and colleagues, with an educational marleni from [employer]. Review of Systems Const Denies poor appetite and Denies weakness Eyes Denies no additional complaints ENT Reports Normal hearing present, Denies dizziness, Denies nasal congestion, Denies tinnitus and Denies sore throat Card Denies chest pain, Denies syncope, Denies rapid heart rate and Denies dyspnea Resp Denies cough and Denies dyspnea GI Denies change in stool character, Reports constipation, Denies diarrhea, Denies nausea and Denies vomiting Denies urinary frequency, Denies difficulty voiding and Denies dysuria Neuro Reports Normal hearing present, Denies confusion, Denies dizziness, Denies syncope and Denies weakness Psych Denies confusion Physical exam (Primary Care) BMI result Body Mass Index 30.2 Tobacco/Smoking Status: Tobacco use Status Tobacco use date assessed 10/01/22 04/30/24 12:29 Patient Tobacco Use Status Former Tobacco user 04/30/24 12:29 Tobacco use type Cigarette 04/30/24 12:29 e-Cigarette/Vaping Use Never Used 04/30/24 12:29 PHQ-9: PHQ-9 Score PHQ-9: Total score 1 04/30/24 12:29 Thrive Assessment: Date of Thrive Assessment Date Thrive assessed 04/30/24 04/30/24 12:29 Currently or been in a relationship where the following occur: Controlled Financially Const General: No confusion Orientation/consciousness: No confusion HENMT Head: Yes normocephalic Ears: external ears normal and TM's normal bilaterally Face and sinus: Yes normal facial exam Mouth: moist mucous membranes Throat: Yes tonsils normal Eyes Conjunctivae: conjunctivae normal Pupils: Equal, round and reactive pupils present and Pupil accommodation reflex normal Direct Ophthalmoscopy: normal light reflex Neck Neck: No lymphadenopathy Thyroid: Thyroid normal Chest Chest palpation & inspection: normal inspection of the chest Resp Effort & Inspection: normal respiratory effort and no audible wheezes Auscultation: clear to auscultation bilaterally, no crackles, no wheezes and lung sounds not diminished Cardio Rate: regular rate Rhythm: regular rhythm Peripheral pulses: radial pulses present and dorsalis pedis present GI Palpation (GI): no masses Auscultation: normal bowel sounds and normoactive bowel sounds Rectal Exam - Female: deferred Skin General skin exam: no rashes or lesions noted Rashes: no rashes Neuro General: No confusion Cranial nerves: Yes Equal, round and reactive pupils present and Yes Normal hearing present Cognition (Neuro): normal cognition Gait exam (Neuro): Normal gait present Motor exam (neuro): 5/5 motor strength present throughout Deep tendon reflexes (DTR's): Right brachioradialis reflex intensity grade: 2+, Left brachioradialis reflex intensity grade: 2+, Right patellar reflex intensity grade: 2+ and Left patellar reflex intensity grade: 2+ Extrem General: No edema Coding Level of Care Code Est Pt Prev Care 40-64y(04032) Diagnoses Annual physical exam Z00.00 Impaired glucose tolerance R73.02 Hypercholesterolemia E78.00 GERD (gastroesophageal reflux disease) K21.9 Obesity (BMI 30.0-34.9) E66.9 Mild intermittent asthma without complication J45.20 Asthma complication type: uncomplicated Asthma persistence: intermittent Asthma severity: mild Cervical spondylosis M47.812 Generalized anxiety disorder F41.1 Colon cancer screening Z12.11 Assessment & Plan Assessment & Plan (1) Annual physical exam: Code(s): Z00.00 - Encounter for general adult medical examination without abnormal findings Category: Medical Plan: Patient is advised to eat healthy, keep well hydrated, keep active and have adequate sleep. (2) Impaired glucose tolerance: Code(s): R73.02 - Impaired glucose tolerance (oral) Category: Medical Plan: Decrease the amount of carbohydrate intake, pasta, bread, rice and potatoes are all sugar and that is aside from all the sweet stuff, remember that fruits are good but they are Sweet also. (3) Hypercholesterolemia: Code(s): E78.00 - Pure hypercholesterolemia, unspecified Category: Medical Plan: Avoid fried foods, chicken skin, eggs, butter margarine, pastries and meat. Be it pork or beef they have a lot of cholesterol LDL goal of less than 130 and triglyceride of less than 150 (4) GERD (gastroesophageal reflux disease): Code(s): K21.9 - Gastro-esophageal reflux disease without esophagitis Category: Medical Plan: Avoid the foods that causes that usually spicy foods, tomato products, juices, coffee, soda and foods that your sensitive to. After eating do not lie down, allow 3-4 hours before in lie down. And keep the head of bed above 30 degrees to avoid the acid from going up. (5) Obesity (BMI 30.0-34.9): Code(s): E66.9 - Obesity, unspecified Category: Medical Plan: Continue with diet and exercise (6) Asthma: Code(s): J45.909 - Unspecified asthma, uncomplicated Category: Medical Qualifiers: Asthma complication type: uncomplicated Asthma persistence: intermittent Asthma severity: mild Qualified Code(s): J45.20 - Mild intermittent asthma, uncomplicated Plan: Patient on albuterol montelukast (7) Cervical spondylosis: Code(s): M47.812 - Spondylosis without myelopathy or radiculopathy, cervical region Category: Medical Plan: Patient on tramadol for pain seeing Rheumatology (8) Generalized anxiety disorder: Comment: [place] Code(s): F41.1 - Generalized anxiety disorder Category: Medical Plan: Continue with counseling and therapy. (9) Colon cancer screening: Code(s): Z12.11 - Encounter for screening for malignant neoplasm of colon Category: Medical Plan: 08/2024 planned Medications: Refilled fluticasone propionate 50 mcg/actuation 2 sprays intranasal DAILY 48 mL 5RF docusate sodium 200 mg (2 x 100 mg) PO DAILY 90 days PRN 180 caps 3RF for constipation
[2024-04-30 12:29] VITALS: BP 124/82; PULSE 92; O2SAT 98; BMI 30.2
== END 2024-04-30 12:55 | disposition home or self-care (01) ==
PROVIDERS: PCP Internal Medicine; Visit Provider Internal Medicine
DX: Z00.00 Encounter for general adult medical examination without abnormal findings (principal); E66.811 Obesity, class 1; Z68.30 Body mass index [BMI] 30.0-30.9, adult; R73.02 Impaired glucose tolerance (oral); E78.00 Pure hypercholesterolemia, unspecified; K21.9 Gastro-esophageal reflux disease without esophagitis; J45.20 Mild intermittent asthma, uncomplicated; M47.812 Spondylosis without myelopathy or radiculopathy, cervical region; F41.1 Generalized anxiety disorder; Z12.11 Encounter for screening for malignant neoplasm of colon

== ENCOUNTER → 2024-04-30 12:25 | Outpatient (BNVA) | payer OTHER, SELFPAY | PROVIDERS: PCP Internal Medicine; Visit Provider Internal Medicine | DX: Z00.01 Encounter for general adult medical examination with abnormal findings (principal); R73.02 Impaired glucose tolerance (oral); E78.00 Pure hypercholesterolemia, unspecified; K21.9 Gastro-esophageal reflux disease without esophagitis; E66.9 Obesity, unspecified; J45.20 Mild intermittent asthma, uncomplicated; M47.812 Spondylosis without myelopathy or radiculopathy, cervical region; F41.1 Generalized anxiety disorder | CPT/HCPCS: 96127; 99396 ==

== ENCOUNTER → 2024-10-28 08:00 | Outpatient (BNV) | payer OTHER, SELFPAY | PROVIDERS: PCP Internal Medicine; Visit Provider Internal Medicine | DX: Z12.31 Encounter for screening mammogram for malignant neoplasm of breast (principal) | CPT/HCPCS: 77063; 77067 ==

== ENCOUNTER 2024-10-28 08:04 | Outpatient (REF) | payer OTHER, SELFPAY | END 2024-10-28 08:05 | disposition home or self-care (01) | LOC: HO.MAMMO 08:04 | PROVIDERS: PCP Internal Medicine; Visit Provider Internal Medicine | DX: Z12.31 Encounter for screening mammogram for malignant neoplasm of breast (principal) | CPT/HCPCS: 77063; 77067 ==

== ENCOUNTER 2024-11-09 10:34 | Day surgery (SDC) | payer OTHER, SELFPAY ==
[2024-09-17 13:59] VITALS: BMI 30.4
--- NOTE | 2024-09-21 08:55 | MHC.SHP ---
Pre-Procedural Eval Section A - 24 Hr Update-Section A only Date of Service: 11/09/24 The patient is an INPATIENT: No The patient has been examined within 24 hours of the surgical procedure. The History & Physical has been completed within 30 days and I have reviewed it.: No Section B - Complete if H&P > 30 days Chief Complaint: Colon cancer screening Relevant Family History (Specify if Yes): Yes Relevant Social History: Tobacco Use (former smoker) Present Medications: see Short Stay Collaborative assessment Medical History: Significant History (Asthma High cholesterol Impaired fasting glucose Obesity Migraines Constipation GERD Allergic rhinitis History of trochanteric bursitis left hip Anxiety/PTSD/depression Urinary incontinence ) History of Previous Operations: Relevant previous surgery/procedure and date(s) (Tonsillectomy Tubal ligation ) Allergies: Allergies Allergy/AdvReac Type Severity Reaction Status Date / Time No Known Allergies Allergy Verified 04/30/24 12:32 [No Known Allergies*] Review of Systems Sugical H&P ROS: Negative: Constitution, Cardiovascular, Respiratory and Gastrointestinal Exam Surgical H&P Exam: Normal: Heart, Normal: Lungs, Normal: Extremities and Normal: Abdomen Plan Diagnosis/Plan: Unchanged I have reviewed the history and physical and performed a pertinent physical examination on my patient. No changes have occurred unless specified. Time Spent With Patient Time: Total time managing care of this patient today ____ minutes.
[2024-11-09 11:01] VITALS: BP 127/78; PULSE 81; RESP 14; TEMP 36.6; O2SAT 99
[2024-11-09] MEDS: Lactated Ringers 1,000 ML 50 ML IVCONT (11:28)
--- NOTE | 2024-11-09 12:12 | P.CONAN_ITS ---
PENDING SALE TO [facility] Active Problems Active Problems: All Active Problems Obesity (BMI 30.0-34.9) (Acute) ASPEN positive (Acute) Asthma (Acute) Cervical spondylosis (Acute) Encounter for medication management (Acute) Abnormal uterine bleeding (Acute) Colon cancer screening (Acute) Rectal bleeding (Acute) Constipated (Acute) Generalized anxiety disorder (Acute) Overweight (BMI 25.0-29.9) (Acute) Annual physical exam (Acute) Allergic rhinitis (Acute) Impaired glucose tolerance (Acute) Hypercholesterolemia (Acute) GERD (gastroesophageal reflux disease) (Acute) Past Medical History Medical History Obesity (BMI 30.0-34.9) Medial epicondylitis, right elbow Dermatitis Bacterial vaginosis Vaginal candidiasis Cervical cancer screening Constipation PTSD (post-traumatic stress disorder) Leukopenia Hypercholesterolemia Urinary incontinence Migraine GERD (gastroesophageal reflux disease) Allergic rhinitis Anxiety and depression Asthma Ulnar neuropathy Vitamin D deficiency Trochanteric bursitis, left hip Family History Family History Father Hypertension Liver cancer Mother Lupus Paternal Aunt Myocardial infarction Substance abuse Daughter No problems noted. Daughter No problems noted. Daughter No problems noted. Maternal Grandfather Renal cancer Surgical History Surgical History History of tonsillectomy History of tubal ligation History of Problems with Anesthesia: No Social History Social History Housing: Apartment Alcohol intake: never Patient Tobacco Use Status: Former Tobacco user Tobacco use type: Cigarette Years Smoked: quit 21 years old e-Cigarette/Vaping Use: Never Used Second Hand Smoke Exposure: No Use of substances other than those prescribed or required for medical reasons: No Are you DNR?: No Advance Directives: No Advance Directives Information Provided: Yes service: No Current occupational status: disabled Gender identity: Female Cognitive needs: No Hearing needs: No Vision needs: No Meds Allergies Allergy/AdvReac Type Severity Reaction Status Date / Time No Known Allergies Allergy Verified 04/30/24 12:32 [No Known Allergies*] Active Medications: Current Medications Lactated Ringer's (Lr) 1,000 mls @ 50 mls/hr IVCONT .Q20H BAILEE Last Admin: 11/09/24 11:28 Dose: 50 mls/hr Naloxone HCl (Naloxone Hcl 0.4 Mg/Ml Vial) 0.04 mg IVPUSH Q5M PRN PRN Reason: Excessive sedation or RR < 8 Home Medications ?Medication ?Instructions ?Recorded ?Confirmed ?Last Taken ?Type clonidine HCl 0.2 mg tablet 0.2 mg PO BEDTIME PRN 06/09/20 04/30/24 Unknown History fluoxetine 40 mg capsule (Prozac) 40 mg PO DAILY 06/09/20 04/30/24 Unknown History gabapentin 100 mg capsule 100 mg PO BEDTIME 06/09/20 04/30/24 Unknown History mirtazapine 15 mg tablet (Remeron) 15 mg PO BEDTIME 06/09/20 04/30/24 Unknown History lorazepam 0.5 mg tablet 0.5 mg PO DAILY PRN 06/29/20 04/30/24 Unknown History cholecalciferol (vitamin D3) 25 25 mcg PO DAILY 09/15/20 04/30/24 Unknown History mcg (1,000 unit) capsule Exam Height,Weight and Vital Signs: Height 5 ft 2 in Weight 74.39 kg Last Vital Signs Temp 97.9 F 11/09/24 11:01 Pulse 81 11/09/24 11:01 Resp 14 11/09/24 11:01 BP 127/78 11/09/24 11:01 Pulse Ox 99 11/09/24 11:01 O2 Del Method Room Air 11/09/24 11:01 Airway Mallampati Class: II TM Dist: >3cm Neck ROM: Full Loose/Missing/Broken Teeth: No Heart: RRR Lungs: CTA Assessment and Plan Assessment Anesthesia Assessment: Anesthesia Plan Discussed and Chart Reviewed Final Anesthetic Review History of Problems with Anesthesia: No NPO: Yes ASA Class: II Final Preanesthetic Review: Meds/Allgs Chart Reviewed, Consent Obtained/Reviewed and Anes Risks/Benef Reviewed Patient Risk: Low Procedure Risk: Low Anesthetic Plan Anesthetic Plan: MAC: Disposition: Standard PACU
--- NOTE | 2024-11-09 13:30 | P.OPN-COLO_ITS ---
Colonoscopy Operative Note Operative Note Date of Service: 11/09/24 Narrative: COLONOSCOPY TILL CECUM WITH BIOPSIES, SNARE POLYPECTOMY AND SUBMUCOSAL INJECTION Pre-op diagnosis: Colon cancer screening (First colon), FH of colon polyps (Mom in her 60's). Post-op diagnosis:? Colon polyps, Diverticulosis, hemorrhoids Endoscopist:? Nazario Lo MD Anesthesia:?MAC Consent: Indications for the procedure and potential complications of bleeding, perforation, reaction to medications and missed diagnosis were discussed with the patient and informed consent was obtained. Instrument: Olympus PCF H 190 L variable stiffness pediatric colonoscope Monitoring: Vital signs and clinical assessment, intermittent blood pressure monitoring, continuous EKG monitoring, Pulse oximetry and Carbon Dioxide monitoring were done throughout the procedure. Please see anesthesia flowsheet. Colon withdrawl time was 19 minutes. Procedure: The patient was placed in the left lateral decubitis position and pre-procedure medications were administered. After a digital rectal examination of the ano-rectum, the video colonoscope was inserted into the rectum and advanced through the colon to the cecum. The colonoscope was slowly withdrawn in a retrograde panoramic fashion and the colon mucosa was carefully examined including a retroflexed view of the rectum. Findings and interventions are described below. Procedure Difficulty: without difficulty Findings: Terminal Ileum: Not evaluated Cecum: A 7-8 mm flat polyp near the appendicular orifice. Polyp was raised with 3 cc of [place] and removed with a stiff hot snare. Some bleeding noted from polypectomy site treated with cautery using the snare tip Ascending Colon: Normal Transverse Colon: Normal Descending Colon: Normal Sigmoid Colon: A 4-5 mm sessile polyp - removed with a cold biopsy. Moderate diverticulosis Rectum: Normal Ano-rectum: Moderate internal hemorrhoids Colon preparation: Good after some irrigation. [employer] Bowel Preparation Scale Right colon; 2 Transverse colon: 2 Left colon; 2 (0 = Unprepared colon segment with mucosa not seen due to solid stool that cannot be cleared. 1 = Portion of mucosa of the colon segment seen, but other areas of the colon segment not well seen due to staining, residual stool and/or opaque liquid. 2 = Minor amount of residual staining, small fragments of stool and/or opaque liquid, but mucosa of colon segment seen well. 3 = Entire mucosa of colon segment seen well with no residual staining, small fragments of stool or opaque liquid) Impression and Post Procedure Diagnosis: Colonoscopy Findings: Two small polyps were removed Moderate diverticulosis seen in the sigmoid colon Moderate hemorrhoids on retroflexed exam. Plan: I will send a letter with biopsy results Repeat Colonoscopy in 5 years if polyps are adenomatous and 10 year if polyps are hyperplastic. Above findings were reviewed with the patient and relevant handouts were given and the discharge area.
[2024-11-09 13:33] VITALS: BP 93/63; PULSE 80; RESP 18; TEMP 36.2; O2SAT 100
[2024-11-09 13:48] VITALS: BP 138/88; PULSE 81; RESP 16; O2SAT 100
[2024-11-09 14:02] VITALS: BP 116/55; PULSE 81; RESP 16; TEMP 36.3; O2SAT 98
== END 2024-11-09 14:47 | disposition home or self-care (01) ==
PROVIDERS: PCP Internal Medicine; Visit Provider Internal Medicine Gastroenterology
PROC: 0DJD8ZZ Inspection of Lower Intestinal Tract, Via Natural or Artificial Opening Endoscopic (ICD-10-PCS; CPT 45378; principal; 2024-11-09 12:20)
DX: Z12.11 Encounter for screening for malignant neoplasm of colon (principal); D12.0 Benign neoplasm of cecum; K57.30 Diverticulosis of large intestine without perforation or abscess without bleeding; K64.8 Other hemorrhoids; Z83.719 Family history of colon polyps, unspecified; J45.909 Unspecified asthma, uncomplicated; K21.9 Gastro-esophageal reflux disease without esophagitis; E78.00 Pure hypercholesterolemia, unspecified; Z87.891 Personal history of nicotine dependence
CPT/HCPCS: 45381; 45388; 45385; 45380; 88305; J2003; J2704

== ENCOUNTER → 2024-11-09 10:34 | Outpatient (BNV) | payer OTHER, SELFPAY | PROVIDERS: PCP Internal Medicine; Visit Provider Internal Medicine Gastroenterology | DX: Z12.11 Encounter for screening for malignant neoplasm of colon (principal); Z83.719 Family history of colon polyps, unspecified; D12.0 Benign neoplasm of cecum; K63.5 Polyp of colon; K57.30 Diverticulosis of large intestine without perforation or abscess without bleeding; K64.8 Other hemorrhoids | CPT/HCPCS: 45380; 45381; 45385 ==

== ENCOUNTER 2025-06-03 09:08 | Outpatient (REF) | payer OTHER, SELFPAY ==
[2025-06-03 13:01] LABS: MANUAL DIFF FLAG NO
[2025-06-03 13:09] LABS: Hematocrit 41.7 % (37.0-47.0); Hemoglobin 14.1 g/dl (12.0-16.0); Imm Gran Abs Auto 0.02 X10*3/uL (0.00-0.03); Imm Gran Pct Auto 0.3 % (0.0-0.4); Lymphocytes Absolute Auto 1.5 X10*3/uL (1.2-4.9); Mean Corpuscular HGB Conc 33.8 g/dl (31.0-35.0); Mean Corpuscular Hemoglobin 30.3 pg (27.0-33.0); Mean Corpuscular Volume 89.5 fL (80.0-98.0); NRBC Abs Auto 0.000 X10*3/uL (0.0-0.012); NRBC Pct Auto 0.0 /100WBC (0.0-0.2); Platelet Count 319 X10*3/uL (160-400); Red Blood Count 4.66 X10*6/uL (4.20-5.50); White Blood Count 7.2 X10*3/uL (4.8-10.8)
[2025-06-03 13:34] LABS: Alanine Aminotransferase 16 U/L (0-31); Albumin Level 4.8 g/dL (3.5-5.0); Alkaline Phosphatase 81 U/L (39-117); Anion Gap 13 (12-20); Aspartate Amino Transferase 20 U/L (5-31); Blood Urea Nitrogen 14 mg/dL (9-16); Calcium 9.3 mg/dL (8.4-10.2); Carbon Dioxide 24 mmol/L (22-29); Chloride 106 mmol/L (96-108); Estimated Glomerular Filt Rate > 60; Potassium 3.9 mmol/L (3.3-5.1); Sodium 139 mmol/L (135-145); Total Protein 7.9 g/dL (6.5-8.0)
== END 2025-06-03 09:09 | disposition home or self-care (01) ==
LOC: HO.HKASLDS 09:08
PROVIDERS: PCP Internal Medicine; Visit Provider Student in an Organized Health Care Education/Training Program
DX: M54.9 Dorsalgia, unspecified (principal); G89.29 Other chronic pain; Z79.899 Other long term (current) drug therapy
CPT/HCPCS: 36415; 80053; 85025; 85652; 86140; 99212

== ENCOUNTER 2025-06-03 09:08 | Outpatient (AMB) | payer OTHER, SELFPAY ==
--- NOTE | 2025-06-03 09:12 | MHC.OFFVIS ---
Vital Signs 06/03/25 09:20 Height 5 ft 2 in Weight 169 lb 8.568 oz BMI 31.0 BP 115/80 Blood Pressure Location Lt brachial Position Sitting Pulse 97 Pulse Source Pulse Oximeter Pulse Oximetry (%) 98 Oxygen Delivery Method Room Air Intake Visit Reasons: back pain Intake Note: Patient presents for back pain follow up. Patient c/o RT hip pain. Allergies No Known Allergies (No Known Allergies*) Allergy (Verified 06/03/25 09:19) Medication List - Last Reconciled 06/03/25 by Niesha Jacob MD albuterol sulfate 90 mcg/actuation (Ventolin HFA) 2 puffs PO Q4-6H PRN betamethasone valerate 0.1% 1 appl topical BID PRN cetirizine (Zyrtec) 10 mg PO DAILY cholecalciferol (vitamin D3) 25 mcg PO DAILY clonidine HCl 0.2 mg PO BEDTIME PRN diphenhydramine HCl 25 - 50 mg (1 - 2 x 25 mg) PO BEDTIME PRN docusate sodium 200 mg (2 x 100 mg) PO DAILY PRN 90 days fluoxetine (Prozac) 40 mg PO DAILY fluticasone propionate 50 mcg/actuation 2 sprays intranasal DAILY gabapentin 100 mg PO BEDTIME lorazepam 0.5 mg PO DAILY PRN mirtazapine (Remeron) 15 mg PO BEDTIME montelukast (Singulair) 10 mg PO DAILY 90 days naloxone 4 mg/actuation 4 mg intranasal Q2M PRN oxybutynin chloride 5 mg PO BID 90 days polyethylene glycol 3350 (Miralax) 17 grams PO DAILY 90 days polyethylene glycol 3350 (Miralax) 17 grams PO DAILY simethicone (Gas Relief (simethicone)) 80 mg PO BID PRN sumatriptan succinate 50 mg PO .QD PRN tramadol 50 mg PO BID PRN HPI Comments Details: Patient is a 49-year-old female with depression/generalized anxiety, allergies, hyperlipidemia, GERD and cervical spondylosis here today for follow up Interval History: Patient last seen 01/01/[address] Vázquez - Not on any DMARDs - On Tramadol 50mg bid 3-4 days/week - No changes made to medication Today, - Not on any DMARDs - On Tramadol 50mg bid 3-4 days/week - Stable overall - Takes Tramadol 3-4 times per week, tries not to take it daily - Still with persistent back and neck pain - Left outer hip pain that radiates to her lower leg Rheumatologic History: Chronic neck and low back pain Current Rheumatology Medication(s): Tramadol 50mg bid prn PFSH Medical History Obesity (BMI 30.0-34.9) Medial epicondylitis, right elbow Dermatitis Bacterial vaginosis Vaginal candidiasis Cervical cancer screening Constipation PTSD (post-traumatic stress disorder) Leukopenia Hypercholesterolemia Urinary incontinence Migraine GERD (gastroesophageal reflux disease) Allergic rhinitis Anxiety and depression Asthma Ulnar neuropathy Vitamin D deficiency Trochanteric bursitis, left hip Surgical History History of tonsillectomy History of tubal ligation Family History Father Hypertension Liver cancer Mother Lupus Paternal Aunt Myocardial infarction Substance abuse Daughter No problems noted. Daughter No problems noted. Daughter No problems noted. Maternal Grandfather Renal cancer Social History Housing: Apartment Alcohol intake: never Patient Tobacco Use Status: Former Tobacco user Tobacco use type: Cigarette Years Smoked: quit 21 years old e-Cigarette/Vaping Use: Never Used Second Hand Smoke Exposure: No service: No Current occupational status: disabled Gender identity: Female Cognitive needs: No Hearing needs: No Vision needs: No Female Reproductive History Menstrual Age of Menarche: 9 Review of Systems Narrative Review of Systems Constitutional: Denies fever, chills, weight loss ENT: Denies vision changes, eye pain or eye redness, dental caries, dry mouth GI: Denies nausea, vomiting, diarrhea, abdominal pain, change in BM Pulm: Denies SOB, KUMAR, hemoptysis, wheezing Cards: Denies chest pain, palpitations Skin: Denies Raynaud's, rash, nail changes, photosensitivity, [employer]: Denies headaches, weakness, paresthesias, recurrent falls MSK: as per HPI All other systems reviewed and are unremarkable except noted above Physical Exam Exam Exam: Vital signs reviewed Physical Examination CONSTITUITIONAL Patient alert and cooperative. Well appearing and in no apparent painful distress MSK Hands Right Hand: Able to make a fist. No swelling or tenderness to palpation of the MCPs, PIPs or DIPs. Left Hand: Able to make a fist. No swelling or tenderness to palpation of the MCPs, PIPs or DIPs. Wrists Right Wrist: Full ROM to flexion and extension. No swelling or TTP Left Wrist: Full ROM to flexion and extension. No swelling or TTP Elbows Right Elbow: Full ROM. No swelling or TTP. No TTP of the medial epicondyle. No TTP of the lateral epicondyle Left Elbow: Full ROM. No swelling or TTP. No TTP of the medial epicondyle. No TTP of the lateral epicondyle Shoulders Right shoulder: Full ROM. No swelling noted. No TTP of the AC joint. No TTP of the subacromial bursa. No TTP of the posterior shoulder Left shoulder: Full ROM. No swelling noted. No TTP of the AC joint. No TTP of the subacromial bursa. No TTP of the posterior shoulder Knees Right knee: Full ROM. No swelling noted. No TTP of the knee joint line. No TTP of pes anserine bursa Left knee: Full ROM. No swelling noted. No TTP of the knee joint line. No TTP of pes anserine bursa. Ankles Right ankle: Good ankle dorsiflexion and plantar flexion. No swelling. No TTP of the ankle joint Left ankle: Good ankle dorsiflexion and plantar flexion. No swelling. No TTP of the ankle joint Feet Right foot: Negative squeeze test Left foot: Negative squeeze test Tender points? No tenderness to palpation of the bilateral trapezius, supraspinatus, anterior costochondral junctions, bilateral suboccipital muscle insertions SKIN No rashes Vital Signs: Last Vital Signs Pulse 97 06/03/25 09:20 BP 115/80 06/03/25 09:20 Pulse Ox 98 06/03/25 09:20 Oxygen Delivery Method Room Air 06/03/25 09:20 BMI result Body Mass Index 31.0 Results Reviewed Results Reviewed: No recent blood work to review Assessment & Plan Assessment & Plan (1) Back pain: Code(s): M54.9 - Dorsalgia, unspecified Qualifiers: Back pain location: back pain in unspecified location Chronicity: chronic Back pain laterality: bilateral Qualified Code(s): M54.9 - Dorsalgia, unspecified; G89.29 - Other chronic pain Plan: #Back pain Patient is a 49-year-old female with chronic back pain here today for follow up. No suspicion for inflammatory type back pain Discussed updating x-rays and checking labs since he has not been done in years Also discussed pain management referral for evaluation of procedural interventions Plan - Update XRs: C spine, T spine, L spine and SI joints - Labs today: CBC, CMP, ESR, CRP - Continue tramadol 50mg bid prn - Pain management referral - RTC 1 year Plan I spent 30 minutes reviewing the record and labs, taking a history, examining the patient, discussing the treatment plan, ordering diagnostic work up and documenting in the medical record Orders: Orders XR lumbar spine 4V min Today M54.9 - Dorsalgia, unspecified XR sacroiliac joint min 3V Today M54.9 - Dorsalgia, unspecified Complete Blood Count Auto Diff Today Z79.899 - Other assistant terminal manager (current) drug therapy C Reactive Protein Today Z79.899 - Other assistant terminal manager (current) drug therapy XR cervical spine 4V Today M54.9 - Dorsalgia, unspecified XR thoracic spine 3V Today M54.9 - Dorsalgia, unspecified Comprehensive Met. Panel Today Z79.899 - Other assistant terminal manager (current) drug therapy Erythrocyte Sedimentation Rate Today Z79.899 - Other assistant terminal manager (current) drug therapy Coding Level of Care Code Est Pt Level 4 (55470) Diagnoses Chronic bilateral back pain, unspecified back location M54.9; G89.29 Back pain location: back pain in unspecified location Chronicity: chronic Back pain laterality: bilateral
[2025-06-03 09:20] VITALS: BP 115/80; PULSE 97; O2SAT 98; BMI 31.0
== END 2025-06-03 09:59 | disposition home or self-care (01) ==
LOC: HO.RHES 09:09
PROVIDERS: PCP Internal Medicine; Visit Provider Student in an Organized Health Care Education/Training Program
DX: M54.9 Dorsalgia, unspecified (principal); G89.29 Other chronic pain
CPT/HCPCS: 99214

== ENCOUNTER 2025-07-10 13:04 | Emergency (ER) | payer OTHER, SELFPAY ==
[2025-07-10 13:44] VITALS: BP 162/77; PULSE 79; RESP 16; TEMP 36.1; O2SAT 99; BMI 31.6
--- NOTE | 2025-07-10 13:44 | ED.EAR ---
HPI - Ear Problem General Chief complaint: Ear Problems Stated complaint: severe ear pain Time Seen by Provider: 07/10/25 13:47 Source: patient, RN notes reviewed and old records reviewed Mode of arrival: ambulatory Limitations: no limitations History of Present Illness ED Provider: Yomaira Miles PA-C HPI Narrative: Alana presents with acute onset right ear pain that began yesterday. She describes daytime discomfort (?kind of phony?) that intensifies to severe pain at night, rating the pain 10/10. She denies trauma to the ear, fever, cold symptoms, or hearing loss. She reports a history of seasonal allergies but no prior similar external ear infections in adulthood (did experience ear pain as a child). She has taken acetaminophen at home with minimal relief. Review of Systems: ? ENT: Right ear pain 10/10. Denies hearing loss. ? Constitutional: Denies fever. ? Respiratory: Denies upper respiratory/cold symptoms. Related Data Home Medications ?Medication ?Instructions ?Recorded ?Confirmed clonidine HCl 0.2 mg tablet 0.2 mg PO BEDTIME PRN 06/09/20 06/03/25 fluoxetine 40 mg capsule (Prozac) 40 mg PO DAILY 06/09/20 06/03/25 gabapentin 100 mg capsule 100 mg PO BEDTIME 06/09/20 06/03/25 mirtazapine 15 mg tablet (Remeron) 15 mg PO BEDTIME 06/09/20 06/03/25 lorazepam 0.5 mg tablet 0.5 mg PO DAILY PRN 06/29/20 06/03/25 cholecalciferol (vitamin D3) 25 25 mcg PO DAILY 09/15/20 06/03/25 mcg (1,000 unit) capsule Previous Rx's ?Medication ?Instructions ?Recorded betamethasone valerate 0.1 % 1 appl topical BID PRN rash #15 06/28/21 topical cream grams diphenhydramine HCl 25 mg tablet 25 - 50 mg (1 - 2 x 25 mg) PO 09/12/22 BEDTIME PRN rash, sleep #30 tabs polyethylene glycol 3350 17 gram 17 g PO DAILY 90 days #100 ea 07/18/23 oral powder packet (Miralax) naloxone 4 mg/actuation nasal spray 4 mg intranasal Q2M PRN opioid 03/11/24 overdose #2 ea fluticasone propionate 50 2 spray intranasal DAILY #48 mL 05/31/24 mcg/actuation nasal spray,suspension albuterol sulfate 90 mcg/actuation 2 puff PO Q4-6H PRN for wheezing 01/19/25 aerosol inhaler (Ventolin HFA) #8.5 grams sumatriptan succinate 50 mg tablet 50 mg PO .QD PRN migraine headache 01/19/25 #10 tabs docusate sodium 100 mg capsule 200 mg (2 x 100 mg) PO DAILY PRN 02/16/25 for constipation 90 days #180 caps polyethylene glycol 3350 17 gram 17 g PO DAILY #100 ea 02/16/25 oral powder packet (Miralax) simethicone 80 mg chewable tablet 80 mg PO BID PRN abdominal 02/16/25 (Gas Relief (simethicone)) distention #60 tabs cetirizine 10 mg tablet (Zyrtec) 10 mg PO DAILY #90 tabs 03/31/25 montelukast 10 mg tablet 10 mg PO DAILY 90 days #90 tabs 05/19/25 (Singulair) oxybutynin chloride 5 mg tablet 5 mg PO BID 90 days #180 tabs 05/19/25 tramadol 50 mg tablet 50 mg PO BID PRN pain #60 tabs 07/06/25 ciprofloxacin 0.3 %-dexamethasone 4 drp otic (ears) BID 7 days #7.5 07/10/25 0.1 % ear drops,suspension mL Allergies Allergy/AdvReac Type Severity Reaction Status Date / Time No Known Allergies (No Known Allergy Verified 07/10/25 13:46 Allergies*) Review of Systems Review of Systems: Yes all other systems are reviewed and are negative [facility] Past Medical History Attestation statement: The following information was validated with the patient. Source: old records reviewed and nursing notes reviewed Medical History Obesity (BMI 30.0-34.9) Medial epicondylitis, right elbow Dermatitis Bacterial vaginosis Vaginal candidiasis Cervical cancer screening Constipation PTSD (post-traumatic stress disorder) Leukopenia Hypercholesterolemia Urinary incontinence Migraine GERD (gastroesophageal reflux disease) Allergic rhinitis Anxiety and depression Asthma Ulnar neuropathy Vitamin D deficiency Trochanteric bursitis, left hip Surgical History History of tonsillectomy History of tubal ligation Family History Family History Father Hypertension Liver cancer Mother Lupus Paternal Aunt Myocardial infarction Substance abuse Daughter No problems noted. Daughter No problems noted. Daughter No problems noted. Maternal Grandfather Renal cancer Social History Social History Housing: Apartment Alcohol intake: never Patient Tobacco Use Status: Former Tobacco user Tobacco use type: Cigarette Years Smoked: quit 21 years old e-Cigarette/Vaping Use: Never Used Second Hand Smoke Exposure: No Advance Directives: No Advance Directives Information Provided: No Do you have a plan to hurt others: No Plan service: No Current occupational status: disabled Gender identity: Female Cognitive needs: No Hearing needs: No Vision needs: No Physical Exam Exam: Exam: General: Appears in no acute distress, appears well nourished body habitus is obese, appears stated age. No septic or ill-appearing. Vitals reviewed normal, PMH/Social and Surgical hx reviewed including allergies and current medications. - reviewed for prior visits here Head: Normocephalic, no abnormal lesions noted. Eyes: EOMI. conjunctiva and sclera clear ENMT: moist oral mucosa, no edematous nasal turbinates, erythema, or purulent d/c noted. External Ear (Right): Canal erythematous and swollen; tenderness to palpation of auricle and periauricular area. ? Tympanic Membrane (Right): Intact, clear, no middle ear effusion.uvula is midline no trismus. Neck: trachea midline, no lymphadenopathy. No nuchal rigidity. Cardiovascular: peripheral perfusion normal, S1 and S2 present, no M/R/G. RRR Respiratory: no respiratory distress, lungs clear to auscultation b/l, respirations full and symmetric. No flail chest, chest wall tenderness or crepitus noted. Speaking in full smooth sentences. = Extremities: Warm and appear well perfused. Moving extremities without difficulty. Psych: Cooperative, calm. Neuro: Alert and orientated. No obvious focal deficits. Vital Signs: Vital Signs: Last Vital Signs Temp 97.0 F 07/10/25 14:21 Pulse 79 07/10/25 14:21 Resp 16 07/10/25 14:21 BP 162/77 H 07/10/25 14:21 Pulse Ox 99 07/10/25 14:21 O2 Del Method Room Air 07/10/25 14:21 BMI result Body Mass Index 31.6 Medical Decision Making Medical Decision Making MDM Narrative: Diagnosis of acute right otitis externa was made based on the patient's history of acute severe right ear pain, absence of trauma, fever, or hearing loss, and physical exam findings of canal erythema/swelling with an intact tympanic membrane. Treatment was selected with topical antibiotic/steroid otic drops to address infection and inflammation, along with recommendations for pain control and strict water precautions to prevent further irritation. The expected course is symptomatic improvement within several days; the patient was instructed to return if pain worsens, fever develops, or there is no improvement. Citation: Topical antibiotics, with or without corticosteroid, are recommended as first-line therapy for uncomplicated acute otitis externa with an intact tympanic membrane. Most patients experience clinical resolution of symptoms within 7?10 days of topical therapy. Assessment & Plan Acute right otitis externa based on focal canal erythema/swelling and severe otalgia with normal tympanic membrane. Problem #1: Acute right otitis externa Assessment: Acute external ear infection with severe pain (10/10), canal erythema/swelling, intact TM. Plan: - RX: Otic drops containing antibiotic and steroid (to address infection and inflammation). Citation: Topical antibiotics, with or without corticosteroid, are recommended as first-line therapy for uncomplicated acute otitis externa with an intact tympanic membrane. No single agent or combination has demonstrated clear superiority. - Avoid water in right ear for 1 week; use a loose cotton ball during showers. - Pain control: Continue acetaminophen and add ibuprofen as needed. - Expect symptomatic improvement in several days; return if worsening pain, fever, or no improvement. Citation: Most patients experience clinical resolution of symptoms within 7?10 days of topical therapy for acute otitis externa. Differential Diagnosis Differential Diagnoses: The differential diagnosis associated with the presentation includes Aom/AOE acute mastoiditis malignant otitis externa gomes bah syndroma otalgia eustachian tube dysfunction labrynthitis Admission/Observation Consideration of admission/observation: Escalation of care including admission/observation considered Prescription Management I considered prescription management with: Antibiotic Social Determinants Patient?s care significantly limited by Social Determinants of Health including: Other Social Determinant of Health Discharge Plan Discharge Clinical Impression: Acute otitis externa of right ear Patient Disposition: Home, Self-Care Instructions: Swimmer's Ear (ED) Additional Instructions: You have an outer ear infection. Please use the drops as prescribed You MUST keep the ear dry until your treatment is done and your symptoms are completely resolved. Use a cotton ball in the ear while showering. If your symptoms are worsening please be re-evaluated. Take Tylenol and/or Motrin as needed for pain. Prescriptions: New ciprofloxacin-dexamethasone 0.3-0.1 % drops,suspension 4 drp otic (ears) BID 7 Days Qty: 7.5 0RF Rx Instructions: apply in right ear No Action diphenhydramine HCl 25 mg tablet 25 - 50 mg PO BEDTIME PRN (Reason: rash, sleep) Qty: 30 0RF polyethylene glycol 3350 [Miralax] 17 gram powder in packet 17 g PO DAILY 90 Days Qty: 100 1RF naloxone 4 mg/actuation spray,non-aerosol 4 mg intranasal Q2M PRN (Reason: opioid overdose) Qty: 2 2RF Rx Instructions: spray 1 dose into ONE nostril; alternate nostrils w each dose until help arrives fluticasone propionate 50 mcg/actuation spray,suspension 2 spray intranasal DAILY Qty: 48 5RF albuterol sulfate [Ventolin HFA] 90 mcg/actuation HFA aerosol inhaler 2 puff PO Q4-6H PRN (Reason: for wheezing) Qty: 8.5 0RF sumatriptan succinate 50 mg tablet 50 mg PO .QD PRN (Reason: migraine headache) Qty: 10 12RF docusate sodium 100 mg capsule 200 mg PO DAILY PRN (Reason: for constipation) 90 Days Qty: 180 3RF simethicone [Gas Relief (simethicone)] 80 mg tablet,chewable 80 mg PO BID PRN (Reason: abdominal distention) Qty: 60 0RF polyethylene glycol 3350 [Miralax] 17 gram powder in packet 17 g PO DAILY Qty: 100 0RF cetirizine [Zyrtec] 10 mg tablet 10 mg PO DAILY Qty: 90 3RF montelukast [Singulair] 10 mg tablet 10 mg PO DAILY 90 Days Qty: 90 3RF oxybutynin chloride 5 mg tablet 5 mg PO BID 90 Days Qty: 180 2RF tramadol 50 mg tablet 50 mg PO BID PRN (Reason: pain) Qty: 60 3RF cholecalciferol (vitamin D3) 25 mcg (1,000 unit) capsule 25 mcg PO DAILY lorazepam 0.5 mg tablet 0.5 mg PO DAILY PRN betamethasone valerate 0.1 % cream 1 appl topical BID PRN (Reason: rash) Qty: 15 0RF clonidine HCl 0.2 mg tablet 0.2 mg PO BEDTIME PRN gabapentin 100 mg capsule 100 mg PO BEDTIME mirtazapine [Remeron] 15 mg tablet 15 mg PO BEDTIME fluoxetine [Prozac] 40 mg capsule 40 mg PO DAILY Referrals: Po,Miracle Garcia MD [Primary Care Provider, Internal Medicine] Interventions: ED Discharge Assessment Last Done: 07/10/25 14:21 Discharge Date/Time: 07/10/25 14:21 Print Language: Cambodian
[2025-07-10 14:21] VITALS: BP 162/77; PULSE 79; RESP 16; TEMP 36.1; O2SAT 99
== END 2025-07-10 14:21 | disposition home or self-care (01) ==
PROVIDERS: Emergency Provider Emergency Medicine; PCP Internal Medicine
DX: H60.91 Unspecified otitis externa, right ear (principal); Z87.891 Personal history of nicotine dependence
CPT/HCPCS: 99282; 99283